=== PATIENT | female | born 1945 | race Two or more races ===

== ENCOUNTER 2020-12-29 13:59 | Outpatient (CLI) | payer OTHER ==
[~2020-12-29 13:59] MED LIST: ADULT ASPIRIN81 MG; DIOVAN40 MG; NORVASC2.5 M1
== END 2020-12-29 14:12 | disposition home or self-care (01) ==
LOC: SONOGRAMA 13:59 → MAMO-SONO 14:15
PROVIDERS: ATTEND Podiatrist Foot Surgery
DX: M25.572 Pain in left ankle and joints of left foot (principal)

== ENCOUNTER 2022-12-29 09:33 | Outpatient (CLI) | payer OTHER | END 2022-12-29 09:43 | disposition home or self-care (01) | LOC: SONOGRAMA 09:33 | PROVIDERS: ATTEND Physical Medicine & Rehabilitation Hospice and Palliative Medicine | DX: M25.572 Pain in left ankle and joints of left foot (principal); M65.879 Other synovitis and tenosynovitis, unspecified ankle and foot; M19.072 Primary osteoarthritis, left ankle and foot; M79.641 Pain in right hand; M79.642 Pain in left hand ==